=== PATIENT | male | born 1975 | race African-American/Black ===

== ENCOUNTER 2016-06-02 00:27 | Emergency (ER) | payer OTHER ==
[~2016-06-02] VITALS: Ht 172.7 cm; Wt 79.1 kg
[~2016-06-02 00:27] MED LIST: ADVAIR 100/28 DISKUS IH; ADVAIR IH; ALBUTEROL S0.4 MG/ML; ALBUTEROL SULFAT3 M3 IH; ALBUTEROL0.09 MG/A1 IH; ALBUTEROL0.09 MG/A3 IH; ALBUTEROL0.83 MG/ML IH; ALBUTEROL1.25 MG/3 IH; ALVESCO160 MCG/Ac IH; ATROVENT INHALE14 GM IH; BACTRIM PO; CEFTIN500 MG PO; CLARITIN 1010 MG/TAB PO; DULERA1 AR1 IH; GLUCOPHAGE500 MG/TAB PO; IPRATROPIUM BROM3 M1 IH; JANUMXR500-50 PO; LAMISIL250 MG PO; LIPITOR 10MG10 MG PO; MEDROL 4MG DOSPA4 MG PO; NO HOME MEDICATIONS; PHENERGAN 25 TA25 MG PO; PREDNISONE 5MG5 MG PO; PREDNISONE10 MG PO; PREDNISONE20 MG PO; PRILOSEC 20MG20 MG PO; PROAIR HFA0.09 MG/AC IH; PROVENTIL0.09 MG/A1 IH; RELION VEN0.09 MG/Ac IH; RT ADVAIR HFA 2312 G IH; RT ALBUTER2.5 MG/0.5 IH; RT SPIRIVA18 MCG; SINGULAIR; SINGULAIR 110 MG/TAB PO; THEO-DUR 2200 MG/TAB PO; VENTOLIN0.09 MG IH; WASH; XOPENEX 0.0.625 MG/3 IH; XOPENEX HF0.045 MG/A IH; ZESTRIL 10MG10 MG PO; ZITHROMAX TRI-500 MG PO; ZITHROMAX Z PA250 MG PO; [UNRECOGNIZED DRUG - REMARK]; janumet PO; prednisone PO
[2016-06-02 00:37] VITALS: BP 140/98; TEMP 97.7
[2016-06-02] MEDS ORDERED: PREDNISONE20 MG PO ×2 (00:43→02:11)
[2016-06-02 02:06] VITALS: PULSE 100
== END 2016-06-02 02:13 | disposition home or self-care (01) ==
LOC: COL.ER 00:27
DX: J45.901 Unspecified asthma with (acute) exacerbation (principal)
CPT/HCPCS: J7512

== ENCOUNTER 2016-07-15 20:23 | Emergency (ER) | payer OTHER ==
[2007-02-22 23:56] VITALS: BP 136/101
[~2016-07-15] VITALS: Ht 175.3 cm; Wt 80.9 kg
[2016-07-15 20:28] VITALS: BP 144/78; TEMP 99
[2016-07-15] MEDS ORDERED: PREDNISONE20 MG PO (22:59)
[2016-07-15 23:19] VITALS: PULSE 98
== END 2016-07-15 23:20 | disposition home or self-care (01) ==
LOC: COL.ER 20:23
DX: J45.901 Unspecified asthma with (acute) exacerbation (principal); E11.9 Type 2 diabetes mellitus without complications; I10 Essential (primary) hypertension
CPT/HCPCS: J7512

== ENCOUNTER → 2016-07-23 | Outpatient (CLI) | payer OTHER | LOC: SUN.DIA 08:45 | DX: E11.65 Type 2 diabetes mellitus with hyperglycemia (principal); Z68.26 Body mass index [BMI] 26.0-26.9, adult; Z79.84 Long term (current) use of oral hypoglycemic drugs; Z71.3 Dietary counseling and surveillance; E78.5 Hyperlipidemia, unspecified; I10 Essential (primary) hypertension ==

== ENCOUNTER → 2016-08-02 | Outpatient (CLI) | payer OTHER | LOC: COL.PUL 08:18 | DX: J45.901 Unspecified asthma with (acute) exacerbation (principal) ==

== ENCOUNTER 2016-09-29 16:33 | Emergency (ER) | payer OTHER ==
[2007-02-22 23:56] VITALS: BP 136/101
[~2016-09-29] VITALS: Ht 175.3 cm; Wt 82.7 kg
[2016-09-29 16:34] VITALS: BP 138/83; TEMP 98.2
[2016-09-29] MEDS ORDERED: PREDNISONE20 MG PO (17:49)
[2016-09-29 17:53] VITALS: PULSE 90
== END 2016-09-29 17:54 | disposition home or self-care (01) ==
LOC: COL.ER 16:33
DX: J45.901 Unspecified asthma with (acute) exacerbation (principal); E11.9 Type 2 diabetes mellitus without complications; Z79.84 Long term (current) use of oral hypoglycemic drugs
CPT/HCPCS: J7512

== ENCOUNTER → 2016-12-17 | Outpatient (CLI) | payer OTHER | LOC: COL.RAD 11:06 | DX: E01.0 Iodine-deficiency related diffuse (endemic) goiter (principal) ==

== ENCOUNTER → 2017-01-21 | Outpatient (CLI) | payer OTHER | LOC: SUN.DIA 08:31 | DX: E11.9 Type 2 diabetes mellitus without complications (principal); E78.5 Hyperlipidemia, unspecified; I10 Essential (primary) hypertension; Z68.27 Body mass index [BMI] 27.0-27.9, adult; Z71.3 Dietary counseling and surveillance | CPT/HCPCS: G0108 ==

== ENCOUNTER 2017-05-04 09:07 | Emergency (ER) | payer BC ==
[2007-02-22 23:56] VITALS: BP 136/101
[~2017-05-04] VITALS: Ht 175.3 cm; Wt 84.1 kg
[2017-05-04] MEDS ORDERED: PREDNISONE 5MG5 MG PO (09:25)
[2017-05-04] MEDS ORDERED: ZITHROMAX Z PA250 MG PO (11:10)
[2017-05-04] MEDS ORDERED: PREDNISONE20 MG PO (11:10)
[2017-05-04 11:16] VITALS: BP 142/80; PULSE 95; TEMP 98
== END 2017-05-04 11:29 | disposition home or self-care (01) ==
LOC: COL.ER 09:07
DX: J45.901 Unspecified asthma with (acute) exacerbation (principal); J20.9 Acute bronchitis, unspecified; E11.9 Type 2 diabetes mellitus without complications; I10 Essential (primary) hypertension; Z79.84 Long term (current) use of oral hypoglycemic drugs
CPT/HCPCS: J7512

== ENCOUNTER → 2017-07-22 | Outpatient (CLI) | payer BC | LOC: SUN.DIA 08:35 | DX: E11.9 Type 2 diabetes mellitus without complications (principal); E78.5 Hyperlipidemia, unspecified; I10 Essential (primary) hypertension; Z68.26 Body mass index [BMI] 26.0-26.9, adult; Z71.3 Dietary counseling and surveillance | CPT/HCPCS: G0108 ==

== ENCOUNTER 2017-10-26 08:07 | Emergency (ER) | payer BC ==
[2007-02-22 23:56] VITALS: BP 136/101
[~2017-10-26] VITALS: Ht 175.3 cm; Wt 81.4 kg
[2017-10-26 08:11] VITALS: BP 127/84; TEMP 98.4
[2017-10-26] MEDS ORDERED: PROAIR HFA0.09 MG/AC IH (08:26)
[2017-10-26] MEDS ORDERED: PREDNISONE20 MG PO (09:06)
[2017-10-26 09:10] VITALS: PULSE 86
== END 2017-10-26 09:10 | disposition home or self-care (01) ==
LOC: COL.ER 08:07
DX: J45.901 Unspecified asthma with (acute) exacerbation (principal); Z79.84 Long term (current) use of oral hypoglycemic drugs
CPT/HCPCS: J7512

== ENCOUNTER → 2018-01-20 | Outpatient (CLI) | payer BC | LOC: SUN.DIA 09:26 | DX: E11.9 Type 2 diabetes mellitus without complications (principal); E78.5 Hyperlipidemia, unspecified; I10 Essential (primary) hypertension | CPT/HCPCS: G0108 ==

== ENCOUNTER 2018-04-15 11:36 | Emergency (ER) | payer BC ==
[2007-02-22 23:56] VITALS: BP 136/101
[~2018-04-15] VITALS: Ht 175.3 cm; Wt 81.8 kg
[2018-04-15 11:42] VITALS: BP 133/92; TEMP 96.9
[2018-04-15] MEDS ORDERED: PREDNISONE20 MG PO (12:29)
[2018-04-15 12:45] VITALS: PULSE 89
== END 2018-04-15 12:45 | disposition home or self-care (01) ==
LOC: COL.ER 11:36
DX: J45.901 Unspecified asthma with (acute) exacerbation (principal); E11.9 Type 2 diabetes mellitus without complications; Z79.84 Long term (current) use of oral hypoglycemic drugs; Z88.8 Allergy status to other drugs, medicaments and biological substances
CPT/HCPCS: J7512

== ENCOUNTER → 2018-08-04 | Outpatient (CLI) | payer BC | LOC: SUN.DIA 08:51 | DX: E11.9 Type 2 diabetes mellitus without complications (principal); E78.5 Hyperlipidemia, unspecified; I10 Essential (primary) hypertension | CPT/HCPCS: G0108 ==

== ENCOUNTER 2018-08-17 13:06 | Outpatient (CLI) | payer BC ==
[2007-02-22 23:56] VITALS: BP 136/101
[~2018-08-17] VITALS: Ht 175.3 cm; Wt 83.7 kg
[~2018-08-17 13:06] MED LIST changes: +JANUMXR1000-50 PO; -JANUMXR500-50 PO
[2018-08-17] MEDS ORDERED: PRIL40 PO (13:26)
[2018-08-17] MEDS ORDERED: PREDNISONE 5MG5 MG PO (13:27)
[2018-08-17 13:55] VITALS: BP 113/69; PULSE 98; TEMP 98.2
== END 2018-08-17 13:52 | disposition home or self-care (01) ==
LOC: EUO 13:06
DX: J45.51 Severe persistent asthma with (acute) exacerbation (principal); Z79.899 Other long term (current) drug therapy

== ENCOUNTER 2018-09-15 13:16 | Outpatient (CLI) | payer BC ==
[2007-02-22 23:56] VITALS: BP 136/101
[~2018-09-15] VITALS: Ht 175.3 cm; Wt 82.7 kg
[~2018-09-15 13:16] MED LIST changes: +BREO ELLIPTA 21 EACH IH; +FASENRA30 MG/1 ML SQ; +PRIL40 PO; +ZYRTEC-D 5 MG-11 TER PO
[2018-09-15 14:02] VITALS: BP 125/82; PULSE 83; TEMP 97.7
== END 2018-09-15 14:04 | disposition home or self-care (01) ==
LOC: EUO 13:16
DX: J45.51 Severe persistent asthma with (acute) exacerbation (principal); H61.23 Impacted cerumen, bilateral; Z79.899 Other long term (current) drug therapy

== ENCOUNTER 2018-10-12 06:44 | Emergency (ER) | payer BC ==
[2007-02-22 23:56] VITALS: BP 136/101
[~2018-10-12] VITALS: Ht 175.3 cm; Wt 84.1 kg
[2018-10-12 07:53] LABS: BASO % 0.1 % (0.0-2.0); GRAN # 8.4 (1.4-6.5); GRAN % 74.1 % (42.2-75.2); HEMATOCRIT 42.4 % (42.0-52.0); HEMOGLOBIN 13.5 g/dl (13.5-18.0); LYMPH # 1.8 (1.2-3.4); LYMPH % 15.9 % (20.0-51.0); MEAN CELL VOLUME 82 fl (80.0-100.0); MEAN CORPUSCULAR HEMOGLOBIN 26 pg (27.0-31.0); MEAN CORPUSCULAR HGB CONC 32 g/dl (33.0-37.0); MEAN PLATELET VOLUME 12.1 fl (7.4-10.4); PLATELET COUNT 189 K/mm3 (130-400)
[2018-10-12 08:00] LABS: BILIRUBIN,TOTAL 0.6 mg/dL (0.0-1.0); CREATININE, serum 0.9 (0.66-1.25); POTASSIUM 3.4 mmol/L (3.4-5.0); TOTAL PROTEIN 7.1 gm/dL (6.4-8.2)
[2018-10-12] MEDS ORDERED: PREDNISONE20 MG PO (08:19)
[2018-10-12] MEDS ORDERED: ZITHROMAX Z PA250 MG PO (08:20)
[2018-10-12 09:10] VITALS: BP 125/87; PULSE 94
== END 2018-10-12 09:10 | disposition home or self-care (01) ==
LOC: COL.ER 06:44
PROVIDERS: Emergency Medicine
DX: J45.901 Unspecified asthma with (acute) exacerbation (principal); E11.9 Type 2 diabetes mellitus without complications; Z79.84 Long term (current) use of oral hypoglycemic drugs; Z79.51 Long term (current) use of inhaled steroids
CPT/HCPCS: J3475; J7030; J7512

== ENCOUNTER 2018-10-13 12:50 | Outpatient (CLI) | payer BC ==
[2007-02-22 23:56] VITALS: BP 136/101
[~2018-10-13] VITALS: Ht 175.3 cm; Wt 82.0 kg
[2018-10-13 13:45] VITALS: BP 137/77; PULSE 103; TEMP 99
== END 2018-10-13 13:48 | disposition home or self-care (01) ==
LOC: EUO 12:50
DX: J82 Pulmonary eosinophilia, not elsewhere classified (principal); J45.51 Severe persistent asthma with (acute) exacerbation; Z79.899 Other long term (current) drug therapy

== ENCOUNTER 2018-12-08 13:10 | Outpatient (CLI) | payer BC, OTHER ==
[~2018-12-08] VITALS: Ht 175.3 cm; Wt 185.0 kg
[2018-12-08 13:15] VITALS: BP 115/65; PULSE 97; TEMP 97.8
== END 2018-12-08 17:00 | disposition home or self-care (01) ==
LOC: EUO 13:10
DX: J82 Pulmonary eosinophilia, not elsewhere classified (principal); Z79.899 Other long term (current) drug therapy

== ENCOUNTER 2019-01-15 18:36 | Emergency (ER) | payer BC ==
[2007-02-22 23:56] VITALS: BP 136/101
[~2019-01-15] VITALS: Ht 175.3 cm; Wt 83.2 kg
[2019-01-15 18:43] VITALS: TEMP 97.9
[2019-01-15] MEDS ORDERED: PREDNISONE20 MG PO (20:02)
[2019-01-15] MEDS ORDERED: ZITHROMAX Z PA250 MG PO (20:35)
[2019-01-15 20:51] VITALS: BP 130/80; PULSE 85
== END 2019-01-15 20:52 | disposition home or self-care (01) ==
LOC: COL.ER 18:36
DX: J44.1 Chronic obstructive pulmonary disease with (acute) exacerbation (principal); Z79.84 Long term (current) use of oral hypoglycemic drugs
CPT/HCPCS: J7512

== ENCOUNTER 2019-02-02 12:54 | Outpatient (CLI) | payer BC ==
[2007-02-22 23:56] VITALS: BP 136/101
[~2019-02-02] VITALS: Ht 175.3 cm; Wt 86.0 kg
[2019-02-02] MEDS ORDERED: ZYRTEC-D 5 MG-11 TER PO (13:11)
[2019-02-02 13:15] VITALS: BP 130/83; PULSE 88; TEMP 98.4
== END 2019-02-02 13:46 | disposition home or self-care (01) ==
LOC: EUO 12:54
DX: J45.51 Severe persistent asthma with (acute) exacerbation (principal); J82 Pulmonary eosinophilia, not elsewhere classified; Z79.899 Other long term (current) drug therapy

== ENCOUNTER 2019-03-30 12:45 | Outpatient (CLI) | payer BC ==
[2007-02-22 23:56] VITALS: BP 136/101
[~2019-03-30] VITALS: Ht 175.3 cm; Wt 85.8 kg
[2019-03-30 14:03] VITALS: BP 127/63; PULSE 91; TEMP 98.1
== END 2019-03-30 14:03 | disposition home or self-care (01) ==
LOC: EUO 12:45
DX: J45.51 Severe persistent asthma with (acute) exacerbation (principal); J82 Pulmonary eosinophilia, not elsewhere classified; Z79.899 Other long term (current) drug therapy
CPT/HCPCS: J0517

== ENCOUNTER 2019-04-18 17:56 | Emergency (ER) | payer BC ==
[2007-02-22 23:56] VITALS: BP 136/101
[~2019-04-18] VITALS: Ht 175.3 cm; Wt 84.1 kg
[2019-04-18] MEDS ORDERED: PREDNISONE20 MG PO (18:38)
[2019-04-18 20:00] VITALS: BP 147/84; PULSE 107; TEMP 97.5
== END 2019-04-18 20:00 | disposition home or self-care (01) ==
LOC: COL.ER 17:56
DX: J45.901 Unspecified asthma with (acute) exacerbation (principal); I10 Essential (primary) hypertension; E78.00 Pure hypercholesterolemia, unspecified; E11.9 Type 2 diabetes mellitus without complications; Z79.84 Long term (current) use of oral hypoglycemic drugs
CPT/HCPCS: J7512

== ENCOUNTER 2019-04-21 22:14 | Emergency (ER) | payer BC ==
[2007-02-22 23:56] VITALS: BP 136/101
[~2019-04-21] VITALS: Ht 175.3 cm; Wt 84.1 kg
[2019-04-21 22:39] VITALS: TEMP 100.1
[2019-04-22] MEDS ORDERED: CHERATUSSIN AC120 ML PO (00:23)
[2019-04-22 00:51] VITALS: BP 131/81; PULSE 111
== END 2019-04-22 00:53 | disposition home or self-care (01) ==
LOC: COL.ER 22:14
DX: J45.901 Unspecified asthma with (acute) exacerbation (principal); J11.1 Influenza due to unidentified influenza virus with other respiratory manifestations; J20.9 Acute bronchitis, unspecified; I10 Essential (primary) hypertension; E11.9 Type 2 diabetes mellitus without complications; Z79.84 Long term (current) use of oral hypoglycemic drugs

== ENCOUNTER 2019-05-25 12:47 | Outpatient (CLI) | payer BC ==
[2007-02-22 23:56] VITALS: BP 136/101
[~2019-05-25] VITALS: Ht 175.3 cm; Wt 86.9 kg
[~2019-05-25 12:47] MED LIST changes: +CHERATUSSIN AC120 ML PO
[2019-05-25 13:17] VITALS: BP 145/71; PULSE 99; TEMP 97.7
== END 2019-05-25 13:28 | disposition home or self-care (01) ==
LOC: EUO 12:47
DX: J82 Pulmonary eosinophilia, not elsewhere classified (principal); Z79.899 Other long term (current) drug therapy
CPT/HCPCS: J0517

== ENCOUNTER 2020-09-24 22:12 | Emergency (ER) | payer BC ==
[2007-02-22 23:56] VITALS: BP 136/101
[~2020-09-24] VITALS: Ht 175.3 cm; Wt 82.7 kg
[2020-09-24 22:27] VITALS: TEMP 97.5
[2020-09-25] MEDS ORDERED: PROAIR RES117 MCG/Ac IH (00:05)
[2020-09-25] MEDS ORDERED: PREDNISONE20 MG PO (00:05)
[2020-09-25 00:16] VITALS: BP 132/88; PULSE 87
== END 2020-09-25 00:16 | disposition home or self-care (01) ==
LOC: COL.ER 22:12
DX: J45.901 Unspecified asthma with (acute) exacerbation (principal)
CPT/HCPCS: J2405; J2930; J7030

== ENCOUNTER 2020-11-26 20:15 | Emergency (ER) | payer BC ==
[~2020-11-26] VITALS: Ht 175.3 cm; Wt 82.7 kg
[~2020-11-26 20:15] MED LIST changes: +PROAIR RES117 MCG/Ac IH
[2020-11-26 20:27] VITALS: TEMP 98.5
[2020-11-26] MEDS ORDERED: PREDNISONE20 MG PO (22:04)
[2020-11-26] MEDS ORDERED: PROAIR HFA0.09 MG/AC IH (22:05)
[2020-11-26 22:20] VITALS: BP 153/96; PULSE 88
== END 2020-11-26 22:20 | disposition home or self-care (01) ==
LOC: COL.ER 20:15
DX: J45.901 Unspecified asthma with (acute) exacerbation (principal); Z79.899 Other long term (current) drug therapy; Z79.52 Long term (current) use of systemic steroids
CPT/HCPCS: J1100; J7030

== ENCOUNTER 2021-09-20 17:11 | Emergency (ER) | payer BC ==
[~2021-09-20] VITALS: Ht 175.3 cm; Wt 85.9 kg
[2021-09-20 17:33] VITALS: BP 119/74; PULSE 96; TEMP 97.4
[2021-09-20] MEDS ORDERED: ZITHROMAX 250M250 MG PO (19:29)
[2021-09-20] MEDS ORDERED: PREDNISONE20 MG PO (19:29)
== END 2021-09-20 19:55 | disposition home or self-care (01) ==
LOC: COL.ER 17:11
DX: J45.909 Unspecified asthma, uncomplicated (principal); Z88.8 Allergy status to other drugs, medicaments and biological substances
CPT/HCPCS: J7512